=== PATIENT | male | born 1975 | race Caucasian/White ===

== ENCOUNTER 2017-08-21 09:34 | Emergency (ER) | payer BC, OTHER ==
[2017-08-21 09:59] VITALS: BP 112/76; PULSE 111; TEMP 98.9; BMI 33.9
[2017-08-21] MEDS ORDERED: KETOROLAC TROMETHAMINE 60 MG/2 ML VIAL IM ONE (11:35)
[2017-08-21] MEDS ORDERED: KETOROLAC TROMETHAMINE 60 MG/2 ML VIAL ONE (11:42)
--- NOTE | 2017-08-21 11:42 | PDOC ---
History of Present Illness - General Chief Complaint: Back Pain Stated Complaint: LOWER BACK PAIN Time Seen by Provider: 08/21/17 11:27 History Source: Patient Exam Limitations: No Limitations - History of Present Illness Initial Comments: 08/21/17 11:36 41 yr male with c/o low back pain radiates to left buttock causing foot numbness and tingling started 2 days ago after sleeping crooked. pt has history of laminectomy to l5 years ago has had on and off back pain since. Denies urine or bowel dysfunction. neg abd pain. 08/21/17 11:37 Occurred: reports: this afternoon Severity: reports: moderate Past History - Past Medical History Allergies/Adverse Reactions: Allergies Allergy/AdvReac Type Severity Reaction Status Date / Time No Known Allergies Allergy Verified 08/21/17 09:54 Home Medications: Ambulatory Orders Cyclobenzaprine HCl [Flexeril -] 10 mg PO TID PRN #21 tablet 08/21/17 Methylprednisolone [Medrol Dose Randy] 4 mg PO ASDIR #21 tablet 08/21/17 Oxycodone HCl/Acetaminophen [Percocet 5-325 mg Tablet] 1 tab PO Q6H PRN #10 tablet MDD 6 tabs 08/21/17 CVA: No COPD: No DVT: No HTN: Yes Psychiatric Problems: Yes (ANXIETY/INSOMNIA) - Immunization History Immunization Up to Date: Yes - Suicide/Smoking/Psychosocial Hx Smoking History: Current every day smoker Have you smoked in the past 12 months: No Number of Cigarettes Smoked Daily: 20 Information on smoking cessation initiated: No Hx Alcohol Use: No Drug/Substance Use Hx: No Substance Use Type: None Trauma Specific PMHX - Complaint Specific PMHX Arthritis: No Back Injury: Yes Neck Injury: No Hx Sacro Iliac Joint Dysfunction: No Review of Systems - Review of Systems Able to Perform ROS?: Yes Is the patient limited Bahraini proficient: No Constitutional: No: Symptoms Reported HEENTM: No: Symptoms Reported Cardiac (ROS): No: Symptoms Reported : No: Symptoms Reported Musculoskeletal: Yes: Symptoms Reported, Back Pain *Physical Exam - Vital Signs Last Vital Signs Temp Pulse Resp BP Pulse Ox 98.9 F 111 H 20 112/76 95 08/21/17 09:54 08/21/17 09:54 08/21/17 09:54 08/21/17 09:54 08/21/17 09:54 - Physical Exam General Appearance: Yes: Nourished, Appropriately Dressed, Mild Distress HEENT: positive: EOMI, SANJU Neck: positive: Supple. negative: Tender lateral, Tender midline Respiratory/Chest: positive: Lungs Clear, Normal Breath Sounds Cardiovascular: positive: Regular Rhythm, Regular Rate Musculoskeletal: positive: Normal Inspection, Other (paraspinal soft tissue lumbar pain to left buttock). negative: Vertebral Tenderness Extremity: positive: Normal Capillary Refill, Normal Inspection, Normal Range of Motion Integumentary: positive: Normal Color, Dry, Warm Neurologic: positive: Fully Oriented, Alert, Normal Mood/Affect, Normal Response , Motor Strength 5/5 Medical Decision Making - Medical Decision Making 08/21/17 11:39 cc: lower back pain radiates to the buttock and thigh no urine or bowel dysfunction will give toradol now ct lumbar spine 08/21/17 16:14 pt feels better after the toradol injection is able to ambulate more easily dc inst discussed all questions asked andanswered at discharge. *DC/Admit/Observation/Transfer Diagnosis at time of Disposition: Back pain at L4-L5 level - Discharge Dispostion Disposition: HOME Condition at time of disposition: Improved - Prescriptions Prescriptions: Cyclobenzaprine HCl [Flexeril -] 10 mg PO TID PRN #21 tablet PRN Reason: Muscle Spasms Methylprednisolone [Medrol Dose Randy] 4 mg PO ASDIR #21 tablet Oxycodone HCl/Acetaminophen [Percocet 5-325 mg Tablet] 1 tab PO Q6H PRN #10 tablet MDD 6 tabs PRN Reason: Severe Pain - Referrals Referrals: Alejandro Vizcarra MD, FAANS [Staff Physician] - - Patient Instructions Additional Instructions: follow with the neurosurgeon for follow up call today to make appointment for this week or next week take the flexeril for muscle spasm take decadron (steroid) as directed for back pain no heavy lifting or bending return to ER for any worsening symptoms - Post Discharge Activity Forms/Work/School Notes: Back to Work
== END 2017-08-21 14:11 | disposition home or self-care (01) ==
LOC: JERFT 09:34
PROC: 3E0233Z Introduction of Anti-inflammatory into Muscle, Percutaneous Approach (ICD-10-PCS; principal; 2017-08-21)
DX: M54.5 Low back pain (principal); I10 Essential (primary) hypertension; F41.8 Other specified anxiety disorders; G47.00 Insomnia, unspecified; F17.210 Nicotine dependence, cigarettes, uncomplicated
CPT/HCPCS: 72131-TC; 99281-25

== ENCOUNTER 2017-09-01 12:04 | Emergency (ER) | payer BC ==
[2017-09-01 12:17] VITALS: BMI 35.2
--- NOTE | 2017-09-01 12:41 | PDOC ---
History of Present Illness - General History Source: Patient Exam Limitations: No Limitations - History of Present Illness Initial Comments: 09/01/17 14:12 The patient is a 41 year old male, with a significant past medical history of hypertension and anxiety/depression(recently started on Trazadone 3 weeks ago), who presents to the emergency department complaining of intermittent chest pain for approximately 1 week. The patient reports his chest pain is typically localized at the right sternal border, however, occurs on his left side with deep inspiration. Patient reports he was having an argument with his when his symptoms started. He reports his symptoms are exacerbated with stress. Today , patient reports new onset of left arm weakness and associated left wrist pain which has resolved. He reports associated shortness of breath, but denies any associated diaphoresis, palpitations, or lower extremity edema. Patient endorses an intermittent cough, which he associates to his Flu and Strep throat diagnosis about 3 weeks ago. Patient denies any recent fever or chills. He denies any recent trauma, heavy lifting, long car/plane rides, sick contacts, or family history of blood clots, exogenous hormones. Patient endorses taking Percocet for his back pain, which was prescribed to him in the ED 2 weeks ago. Patient admits to using a "weed pen" 1 month ago, but denies any recent Cocaine or Ecstasy use. As per partner present at bedside, the patient has not been acting at baseline since starting Trazadone; she reports associated falls and confusion. Allergies: NKDA Past Surgical History: Lower back surgery Social History: Current everyday smoker. Recreational drug use. No ETOH use PCP: Dr. Vazquez <Jairon Cifuentes - Last Filed: 09/01/17 15:33> <Roxann Francois - Last Filed: 09/01/17 19:32> - General Chief Complaint: Respiratory Stated Complaint: CHEST PAIN Past History <Jairon Cifuentes - Last Filed: 09/01/17 15:33> - Past Medical History CVA: No COPD: No DVT: No HTN: Yes Psychiatric Problems: Yes (ANXIETY/INSOMNIA) - Immunization History Immunization Up to Date: Yes - Suicide/Smoking/Psychosocial Hx Smoking History: Current every day smoker Have you smoked in the past 12 months: No Number of Cigarettes Smoked Daily: 20 Information on smoking cessation initiated: No Hx Alcohol Use: No Drug/Substance Use Hx: No Substance Use Type: None <Roxann Francois - Last Filed: 09/01/17 19:32> - Past Medical History Allergies/Adverse Reactions: Allergies Allergy/AdvReac Type Severity Reaction Status Date / Time No Known Allergies Allergy Verified 09/01/17 12:17 Home Medications: Ambulatory Orders Amlodipine Bes/Olmesartan Med [Radha 5-20 mg Tablet] 1 each PO DAILY 09/01/17 Trazodone HCl [Desyrel -] 100 mg PO HS 09/01/17 Review of Systems - Review of Systems Able to Perform ROS?: Yes Comments:: 09/01/17 14:12 GENERAL/CONSTITUTIONAL: No fever or chills. No weakness. HEAD, EYES, EARS, NOSE AND THROAT: No change in vision. No ear pain or discharge. No sore throat. GASTROINTESTINAL: No nausea, vomiting, diarrhea or constipation. GENITOURINARY: No dysuria, frequency, or change in urination. CARDIOVASCULAR: Yes chest pain, shortness of breath. No diaphoresis, palpitations. RESPIRATORY: Yes cough. No wheezing, or hemoptysis. MUSCULOSKELETAL: Yes left arm weakness and left wrist pain. No joint or muscle swelling. No neck or back pain. SKIN: No rash NEUROLOGIC: No headache, vertigo, loss of consciousness, or change in strength/ sensation. ENDOCRINE: No increased thirst. No abnormal weight change. HEMATOLOGIC/LYMPHATIC: No anemia, easy bleeding, or history of blood clots. ALLERGIC/IMMUNOLOGIC: No hives or skin allergy. <Jairon Cifuentes - Last Filed: 09/01/17 15:33> *Physical Exam - Vital Signs Last Vital Signs Temp Pulse Resp BP Pulse Ox 98.7 F 106 H 20 130/91 99 09/01/17 12:15 09/01/17 12:15 09/01/17 12:15 09/01/17 12:15 09/01/17 12:15 - Physical Exam Comments: 09/01/17 14:12 GENERAL: Awake, alert, and fully oriented. Tearful on exam, reports a lot of stress. HEAD: No signs of trauma EYES: PERRLA, EOMI, sclera anicteric, conjunctiva clear ENT: Auricles normal inspection, hearing grossly normal, nares patent, oropharynx clear without exudates. Moist mucosa NECK: Normal ROM, supple, no lymphadenopathy, JVD, or masses LUNGS: Breath sounds equal, clear to auscultation bilaterally. No wheezes, and no crackles HEART: Regular rate and rhythm, normal S1 and S2, no murmurs, rubs or gallops ABDOMEN: Soft, nontender, normoactive bowel sounds. No guarding, no rebound. No masses EXTREMITIES: Normal range of motion, no edema. No clubbing or cyanosis. No cords, erythema, or tenderness BACK: No midline spinal tenderness in cervical/thoracic/lumbar region NEUROLOGICAL: Normal speech, cranial nerves intact, negative pronator drift, 5/ 5 strength in all 4 extremities, normal sensation to light touch in all 4 extremities, normal cerebellar exam, normal gait, normal reflexes and tone SKIN: Warm, Dry, normal turgor, no rashes or lesions noted. PSYCH: denies SI/HI/AH/VH <Jairon Cifuentes - Last Filed: 09/01/17 15:33> - Vital Signs Last Vital Signs Temp Pulse Resp BP Pulse Ox 98.7 F 106 H 20 130/91 99 09/01/17 12:15 09/01/17 12:15 09/01/17 12:15 09/01/17 12:15 09/01/17 12:15 <Roxann Francois - Last Filed: 09/01/17 19:32> Heart Score/ECG Review - History History: Slightly suspicious - Electrocardiogram EKG: Non specific repolarization disturbance - Age Age: </= 45 - Risk Factors Risk Factors Heart Score: Yes Hx Hypertension, Yes Smoking History, Yes Hx Obesity Based on the list above the patient has:: >/=3 risk factors or Hx atherosclerotic disease - Troponin Troponin: </= normal limit - Score Heart Score - Total: 3 #1 09/01/17 15:26 Twelve-lead EKG was performed and reviewed by me. Sinus tachycardia, rate 105. Left axis deviation. No ST elevations. Isolated T-wave inversion in lead 3. <Roxann Francois - Last Filed: 09/01/17 19:32> ED Treatment Course - LABORATORY CBC & Chemistry Diagram: 09/01/17 13:27 09/01/17 13:27 - ADDITIONAL ORDERS Additional order review: 09/01/17 13:27 RBC 5.35 MCV 91.5 MCHC 32.6 RDW 14.8 MPV 7.9 Neutrophils % 74.1 Lymphocytes % 15.2 Monocytes % 9.0 Eosinophils % 1.1 Basophils % 0.6 - RADIOLOGY Radiograph Interpretation: 09/01/17 14:13 EXAM: CXR INTERPRETED BY: Dr. Luke REVIEWED BY: Dr. Francois IMPRESSION: No acute pathology. <Jairon Cifuentes - Last Filed: 09/01/17 15:33> - LABORATORY CBC & Chemistry Diagram: 09/01/17 13:27 09/01/17 13:27 <Roxann Francois - Last Filed: 09/01/17 19:32> Medical Decision Making - Medical Decision Making 09/01/17 13:36 41-year-old male with a history of hypertension, depression, anxiety presents with 3 days of intermittent right-sided chest pain that at times radiates to the left chest. Prior to arrival to the emergency department patient also had left arm pain. Vitals remarkable for tachycardia to 106. Exam is unremarkable. Differential includes but is not limited to ACS although HS 3 versus PE versus musculoskeletal pain versus pneumonia versus GERD. Plan: -labs -cxr -dimer -utox -pt declines pain medication -reassess 09/01/17 15:27 Labs unremarkable including negative troponin and negative d-dimer. Chest x-ray is clear. Urinalysis is unremarkable. Urine toxicology positive for opiates, cocaine, and ecstasy. Patient reports he has been taking Percocet that was prescribed exam here in the emergency department 2 weeks ago, however he denies any cocaine or ecstasy use. He does admit to a using a "weed pen" 1 month ago. He reports that his chest pain has resolved for the time being. Given the low heart score of 3, will obtain a second troponin 4 hours after the first. Pain is possibly musculoskeletal versus GERD, however patient is currently asymptomatic. Will reassess. 09/01/17 19:25 Second troponin is negative. Patient with no chest pain in the emergency department. Vitals are unremarkable. He requests discharge home. I discussed the physical exam findings, ancillary test results and final diagnoses with the patient. I answered all of the patient's questions. The patient was satisfied with the care received and felt comfortable with the discharge plan and treatment plan. The patient will call their primary care physician within 24 hours to arrange follow-up and will return to the Emergency Department with any new, persistent or worsening symptoms. <Roxann Francois - Last Filed: 09/01/17 19:32> *DC/Admit/Observation/Transfer - Attestations Scribe Attestion: 09/01/17 14:12 Documentation prepared by Jairon Cifuentes, acting as senior medical writer for Roxann Francois MD. <Jairon Cifuentes - Last Filed: 09/01/17 15:33> - Discharge Dispostion Admit: No - Attestations Physician Attestion: 09/01/17 19:26 I, Dr. Roxann Francois MD, attest that this document has been prepared under my direction and personally reviewed by me in its entirety. I further attest, that it accurately reflects all work, treatment, procedures and medical decision -making performed by me. <Roxann Francois - Last Filed: 09/01/17 19:32> Diagnosis at time of Disposition: Chest pain - Discharge Dispostion Disposition: HOME Condition at time of disposition: Stable
[2017-09-01 14:05] LABS: BASO % 0.6 % (0-2.0); EOS % 1.1 % (0-4.5); LYMPH % 15.2 % (8-40); MCH 29.9 pg (25.7-33.7); MCHC 32.6 g/dl (32.0-35.9); MEAN CELL VOLUME 91.5 fl (80-96); MEAN PLT VOLUME 7.9 fl (7.5-11.1); NEUT % 74.1 % (42.8-82.8); PLATELET COUNT 227 K/MM3 (134-434); RBC 5.35 M/mm3 (4.00-5.60); RDW 14.8 % (11.9-15.9)
[2017-09-01 14:22] LABS: URINE APPEARANCE CLEAR; URINE BILIRUBIN NEGATIVE (NEGATIVE); URINE BLOOD 1+ (NEGATIVE); URINE COLOR YELLOW; URINE GLUCOSE (UA) NEGATIVE (NEGATIVE); URINE KETONE NEGATIVE (NEGATIVE); URINE LEUK ESTERASE TRACE (NEGATIVE); URINE NITRITE NEGATIVE (NEGATIVE); URINE PROTEIN NEGATIVE (NEGATIVE); URINE UROBILINOGEN NEGATIVE mg/dL (0.2-1.0)
[2017-09-01 14:27] LABS: LIPASE 123 U/L (73-393); MAGNESIUM 2.2 mg/dL (1.8-2.4)
[2017-09-01 14:33] LABS: EPI CELLS RARE /HPF (FEW); URINE BACTERIA RARE /hpf (NONE SEEN); URINE MUCUS RARE
[2017-09-01 14:33] LABS: ALBUMIN 3.8 g/dl (3.4-5.0); ALK PHOS 78 U/L (45-117); ANION GAP 5 (8-16); BILIRUBIN,TOTAL 0.4 mg/dL (0.2-1.0); BLOOD UREA NITROGEN 14 mg/dL (7-18); CALCIUM 8.6 mg/dL (8.5-10.1); CHLORIDE 102 mmol/L (98-107); CO2 30 mmol/L (21-32); CREATININE 0.9 mg/dL (0.7-1.3); GLUCOSE,RANDOM 106 mg/dL (74-106); SGPT/ALT 52 U/L (12-78); SODIUM 137 mmol/L (136-145)
[2017-09-01 15:03] LABS: POTASSIUM 4.2 mmol/L (3.5-5.1); SGOT/AST 24 U/L (15-37)
[2017-09-01 15:10] LABS: URINE AMPHETAMINES NEGATIVE ng/ml (CUTOFF=500); URINE BARBITURATES NEGATIVE ng/ml (CUTOFF=200); URINE BENZODIAZEPINES NEGATIVE ng/ml (CUTOFF=200)
[2017-09-01 15:11] LABS: COCAINE, UR POSITIVE ng/ml (CUTOFF=300); METHADONE, UR NEGATIVE ng/ml (CUTOFF=300); OPIATES, URI POSITIVE ng/ml (CUTOFF=300); PHENCYCLIDINE,URINE NEGATIVE ng/ml (CUTOFF=25)
[2017-09-01 20:04] VITALS: BP 168/67; PULSE 78; TEMP 98
--- NOTE | 2017-09-02 11:41 | EKG ---
Test Reason : Blood Pressure : / mmHG Vent. Rate : 105 BPM Atrial Rate : 105 BPM P-R Int : 126 ms QRS Dur : 090 ms QT Int : 340 ms P-R-T Axes : 041 -46 020 degrees QTc Int : 449 ms SINUS TACHYCARDIA LEFT AXIS DEVIATION PULMONARY DISEASE PATTERN ABNORMAL ECG Confirmed by MD LORNE, MILES ([id number]) on 09/02/2017 11:41:21 AM Referred By: Confirmed By:MILES PRADHAN MD
== END 2017-09-01 20:04 | disposition home or self-care (01) ==
LOC: JER 12:04 → UNDOADMOB 15:32 → JERBED 15:32 → JER 20:04
DX: R07.89 Other chest pain (principal); I10 Essential (primary) hypertension; F41.8 Other specified anxiety disorders
CPT/HCPCS: 36415; 71045-TC; 80053; 80307; 81003; 81015; 83690; 83735; 84443; 84484; 85025; 85379; 87086; 93005; 93010; 99283-25; G0480

== ENCOUNTER 2018-07-22 18:44 | Emergency (ER) | payer BC ==
[2018-07-22 18:55] VITALS: BP 150/100; PULSE 98; TEMP 100; BMI 38.0
--- NOTE | 2018-07-22 20:08 | PDOC ---
History of Present Illness <Yamini Santamaria - Last Filed: 07/23/18 00:41> - History of Present Illness Initial Comments: 07/22/18 21:49 This is a 42 year old male, with a significant past medical history of hypertension and anxiety/depression, who presents to the emergency department today complaining of a right pinky laceration that occurred 1 hour prior to arrival. Patient notes he sliced his finger on a mandolin earlier tonight while cooking dinner. Reports chunk of his finger fell off into mandolin completely. He denies paresthesia to the right pinky finger. Patient notes he is up to date on his Tetanus vaccination, last got earlier this year. The patient denies chest pain, shortness of breath, headache and dizziness. Denies fever, chills, nausea, and vomit. Allergies: NKA PCP: Dr. Vazquez. 07/23/18 06:07 <Roxann Francois - Last Filed: 07/23/18 06:10> - General Chief Complaint: Laceration Stated Complaint: RIGHT 5TH FINGER LACERATION Time Seen by Provider: 07/22/18 19:34 Past History <Yamini Santamaria - Last Filed: 07/23/18 00:41> - Past Medical History CVA: No COPD: No DVT: No HTN: Yes Kidney Stones: Yes Psychiatric Problems: Yes (ANXIETY/INSOMNIA) - Immunization History Immunization Up to Date: Yes - Suicide/Smoking/Psychosocial Hx Smoking History: Current every day smoker Have you smoked in the past 12 months: Yes Number of Cigarettes Smoked Daily: 20 Information on smoking cessation initiated: Yes Hx Alcohol Use: Yes (1-2 TIMES A WEEK) Drug/Substance Use Hx: No Substance Use Type: None <Roxann Francois - Last Filed: 07/23/18 06:10> - Past Medical History Allergies/Adverse Reactions: Allergies Allergy/AdvReac Type Severity Reaction Status Date / Time No Known Allergies Allergy Verified 07/22/18 19:31 Home Medications: Ambulatory Orders Amlodipine Bes/Olmesartan Med [Radha 5-20 mg Tablet] 1 each PO DAILY 09/01/17 Cephalexin [Keflex] 500 mg PO QID #28 capsule 07/22/18 Naproxen 500 mg PO BID PRN #14 tablet 07/22/18 Oxycodone HCl/Acetaminophen [Percocet 5-325 mg Tablet] 1 tab PO Q12H PRN #5 tablet MDD 2 tabs 07/22/18 Review of Systems - Review of Systems Comments:: 07/22/18 21:51 GENERAL/CONSTITUTIONAL: No fever or chills. No weakness. HEAD, EYES, EARS, NOSE AND THROAT: No change in vision. No ear pain or discharge. No sore throat. GASTROINTESTINAL: No nausea, vomiting, diarrhea or constipation. GENITOURINARY: No dysuria, frequency, or change in urination. CARDIOVASCULAR: No chest pain or shortness of breath. RESPIRATORY: No cough, wheezing, or hemoptysis. MUSCULOSKELETAL: +Right pinky laceration. +Right pinky pain. No neck or back pain. SKIN: No rash NEUROLOGIC: No headache, vertigo, loss of consciousness, or change in strength/ sensation. ENDOCRINE: No increased thirst. No abnormal weight change. HEMATOLOGIC/LYMPHATIC: No anemia, easy bleeding, or history of blood clots. ALLERGIC/IMMUNOLOGIC: No hives or skin allergy. <Roxann Francois - Last Filed: 07/23/18 06:10> *Physical Exam - Vital Signs Last Vital Signs Temp Pulse Resp BP Pulse Ox 100.0 F H 98 H 18 150/100 96 07/22/18 18:46 07/22/18 18:46 07/22/18 18:46 07/22/18 18:46 07/22/18 18:46 <Yamini Santamaria - Last Filed: 07/23/18 00:41> - Vital Signs Last Vital Signs Temp Pulse Resp BP Pulse Ox 100.0 F H 98 H 18 150/100 96 07/22/18 18:46 07/22/18 18:46 07/22/18 18:46 07/22/18 18:46 07/22/18 18:46 - Physical Exam Comments: 07/22/18 21:52 GENERAL: Awake, alert, and fully oriented, in no acute distress EYES: Sclera anicteric, conjunctiva clear LUNGS: Breath sounds equal, clear to auscultation bilaterally. No wheezes, and no crackles HEART: Regular rate and rhythm, normal S1 and S2, no murmurs, rubs or gallops ABDOMEN: Soft, nontender, normoactive bowel sounds. No guarding, no rebound. No masses EXTREMITIES: R 5th finger with 1 cm dermal avulsion over dorsal DIP joint, with mild oozing in multiple areas. Able to fully flex and extend against resistance in DIP and PIP. Normal sensation. No exposed tendons. NEUROLOGICAL: Normal speech, cranial nerves intact, equal strength and sensation b/l SKIN: As noted above, otherwise warm, dry, normal turgor, no rashes or lesions noted. <Roxann Francois - Last Filed: 07/23/18 06:10> Moderate Sedation - Procedure Monitoring Vital Signs: Procedure Monitoring Vital Signs Temperature 100.0 F H 07/22/18 18:46 Pulse Rate 98 H 07/22/18 18:46 Respiratory Rate 18 07/22/18 18:46 Blood Pressure 150/100 07/22/18 18:46 O2 Sat by Pulse Oximetry (%) 96 07/22/18 18:46 <Yamini Santamaria - Last Filed: 07/23/18 00:41> - Procedure Monitoring Vital Signs: Procedure Monitoring Vital Signs Temperature 100.0 F H 07/22/18 18:46 Pulse Rate 98 H 07/22/18 18:46 Respiratory Rate 18 07/22/18 18:46 Blood Pressure 150/100 07/22/18 18:46 O2 Sat by Pulse Oximetry (%) 96 07/22/18 18:46 <Roxann Francois - Last Filed: 07/23/18 06:10> ED Treatment Course - RADIOLOGY Radiograph Interpretation: RAD/FINGER(S) RIGHT Impression: Soft tissue swelling, distally. Reported By: Cleveland Riggins MD 07/23/18 00:00. 07/23/18 00:35 - Consult/PCP Time Called: 19:35 (Spoke with Dr. Guo concerning patient's laceration, he recommended wound dressing and a follow up with his office on Sunday) Case discussed with personal care physician: Devan Guo <Yamini Santamaria - Last Filed: 07/23/18 00:41> - RADIOLOGY Radiology Studies Ordered: Category Date Time Status FINGER(S) RIGHT [RAD] Stat Radiology 07/22/18 20:05 Ordered <Roxann Francois - Last Filed: 07/23/18 06:10> Medical Decision Making - Medical Decision Making 07/22/18 22:01 42yo M presents to the ED with R 5th finger DIP dermal avulsion injury, flap removed with mandolin entirely. XR negative for FB on my read. Despite pressure dressing, wound continued to ooze. At this point tourniquet placed on proximal finger, secured with clamp and finger dressed with gauze soaked with 2% lidocaine with epi. Good hemostasis achieved. Using nasal cannula, wound was dried and multiple layers of skin adhesive applied to wound. Xeroform dressing placed with dry dressing over it. Splint placed on finger to minimize ROM. Case discussed with Dr. Guo, recommends keflex and f/u with him in 2 days. Plan discussed with pt. Given percocet for pain control. Requests DC home I discussed the physical exam findings, ancillary test results and final diagnoses with the patient. I answered all of the patient's questions. The patient was satisfied with the care received and felt comfortable with the discharge plan and treatment plan. The patient will call their primary care physician within 24 hours to arrange follow-up and will return to the Emergency Department with any new, persistent or worsening symptoms. <Roxann Francois - Last Filed: 07/23/18 06:10> *DC/Admit/Observation/Transfer - Attestations Scribe Attestion: 07/22/18 20:29 Documentation prepared by ZULEMA Herrmann, acting as medical and scientific illustrator for Roxann Francois MD. <Yamini Santamaria - Last Filed: 07/23/18 00:41> - Discharge Dispostion Decision to Admit order: No - Attestations Physician Attestion: 07/22/18 21:27 I, Dr. Roxann Francois MD, attest that this document has been prepared under my direction and personally reviewed by me in its entirety. I further attest, that it accurately reflects all work, treatment, procedures and medical decision -making performed by me. <Roxann Francois - Last Filed: 07/23/18 06:10> Diagnosis at time of Disposition: Laceration - Discharge Dispostion Disposition: HOME Condition at time of disposition: Good - Prescriptions Prescriptions: Cephalexin [Keflex] 500 mg PO QID #28 capsule Naproxen 500 mg PO BID PRN #14 tablet PRN Reason: Pain Oxycodone HCl/Acetaminophen [Percocet 5-325 mg Tablet] 1 tab PO Q12H PRN #5 tablet MDD 2 tabs PRN Reason: Pain - Referrals Referrals: Toro Vazquez [Primary Care Provider] - Devan Guo MD [Staff Physician] - - Patient Instructions Printed Discharge Instructions: How to Care for a Surgical Wound-Skin Adhesive Additional Instructions: Keep the incision clean and dry until you see Dr. Guo on Tuesday 07/24. He is the hand surgeon. His phone number is [phone]. Please call his office tomorrow in the morning to arrange a time to see him on Sunday. After 24 hours, you may allow the soap and water to rinse off your incision. Take naproxen as needed for pain twice a day. If naproxen is not controlling your pain, take percocet as needed. Return to the ER if you notice red streaks, increase redness/swelling/severe pain to the incision. - Post Discharge Activity
[2018-07-22] MEDS ORDERED: LIDO 2%/EPI 1:200000 PRESRVFRE (20 ML SDVIAL) ONE (20:42)
== END 2018-07-22 21:26 | disposition home or self-care (01) ==
LOC: FER 18:44
DX: S61.216A Laceration without foreign body of right little finger without damage to nail, initial encounter (principal); W27.8XXA Contact with other nonpowered hand tool, initial encounter; Y93.G3 Activity, cooking and baking; Y92.000 Kitchen of unspecified non-institutional (private) residence as the place of occurrence of the external cause; F17.210 Nicotine dependence, cigarettes, uncomplicated; F41.9 Anxiety disorder, unspecified; I10 Essential (primary) hypertension; N20.0 Calculus of kidney
CPT/HCPCS: 73140-TC-RT-FY; 99282-25

== ENCOUNTER 2020-07-03 19:11 | Emergency (ER) | payer OTHER | END 2020-07-03 19:45 | disposition home or self-care (01) | LOC: JVIRT 19:11 | DX: Z03.818 Encounter for observation for suspected exposure to other biological agents ruled out (principal) | CPT/HCPCS: 87804; C9803; G2012-GT; Q3014-GT; U0003 ==

== ENCOUNTER 2020-07-13 10:51 | Emergency (ER) | payer OTHER | END 2020-07-13 11:33 | disposition home or self-care (01) | LOC: JVIRT 10:51 | DX: Z03.818 Encounter for observation for suspected exposure to other biological agents ruled out (principal) | CPT/HCPCS: C9803; G2012-GT; U0003 ==

== ENCOUNTER 2020-09-10 12:58 | Emergency (ER) | payer OTHER | END 2020-09-10 13:23 | disposition home or self-care (01) | LOC: JVIRT 12:58 | DX: Z11.52 Encounter for screening for COVID-19 (principal) | CPT/HCPCS: C9803; G2012-GT; U0003 ==

== ENCOUNTER 2021-07-02 14:37 | Emergency (ER) | payer OTHER ==
[2021-07-02 15:50] VITALS: BMI 35.9
[2021-07-02] MEDS ORDERED: ACETAMINOPHEN 1000 MG/100 ML VIAL IVPB ONE (16:01)
[2021-07-02] MEDS ORDERED: SODIUM CHLORIDE 0.9% 500 ML INFUS.BAG IV ONE (16:01)
[2021-07-02] MEDS ORDERED: ACETAMINOPHEN INJECTION 100 ML IVPB ONE (16:04)
[2021-07-02 16:46] LABS: BASO % 4.8 % (0-2.0); EOS % 1.2 % (0-4.5); HEMATOCRIT 51.8 % (35.4-49); HEMOGLOBIN 17.4 GM/dl (11.7-16.9); LYMPH % 11.8 % (8-40); MCH 31.3 pg (25.7-33.7); MCHC 33.7 g/dl (32.0-35.9); MONO % 12.1 % (3.8-10.2); NEUT % 70.1 % (42.8-82.8); PLATELET COUNT 187 10^3/uL (134-434); RBC 5.57 M/mm3 (4.00-5.60); RDW 13.3 % (11.9-15.9); WHITE BLOOD COUNT 9.4 K/mm3 (4.0-10.8)
[2021-07-02 16:52] LABS: BILIRUBIN,TOTAL 0.6 mg/dl (0.2-1); CALCIUM 9.2 mg/dl (8.5-10); CREATININE 0.8 mg/dl (0.55-1.3); TOT PROT 6.8 g/dl (6.4-8.2)
[2021-07-02 17:48] VITALS: BP 152/106; PULSE 98; TEMP 98.8
== END 2021-07-02 18:22 | disposition home or self-care (01) ==
LOC: FER 14:37
PROC: 3E033NZ Introduction of Analgesics, Hypnotics, Sedatives into Peripheral Vein, Percutaneous Approach (ICD-10-PCS; principal; 2021-07-02)
DX: J02.9 Acute pharyngitis, unspecified (principal); R03.0 Elevated blood-pressure reading, without diagnosis of hypertension; R07.9 Chest pain, unspecified; J06.9 Acute upper respiratory infection, unspecified
CPT/HCPCS: 36415; 71046-TC-FY; 80053; 82550; 82553; 84484; 85025; 87651; 87804; 93005; 99284-25; C9803; J0131; U0003; U0005

== ENCOUNTER 2023-11-19 00:26 | Emergency (ER) | payer OTHER ==
[2023-11-19] MEDS ORDERED: diphenhydrAMINE HCL 25 MG CAPSULE (FP) PO ONE (00:31)
[2023-11-19] MEDS ORDERED: predniSONE 20 MG TABLET (UD) ONE (00:31)
[2023-11-19] MEDS: diphenhydrAMINE HCL 50 MG CAPSULE PO ONE (00:35)
[2023-11-19] MEDS: predniSONE 20 MG TABLET (UD) PO ONE (00:35)
[2023-11-19 00:38] VITALS: BP 142/97; TEMP 97.7; BMI 36.6
[2023-11-19 01:39] VITALS: PULSE 80; RESP 16
== END 2023-11-19 01:48 | disposition home or self-care (01) ==
LOC: FER 00:26
DX: T78.40XA Allergy, unspecified, initial encounter (principal); H04.203 Unspecified epiphora, bilateral; R09.89 Other specified symptoms and signs involving the circulatory and respiratory systems
CPT/HCPCS: 99283-25

== ENCOUNTER 2024-04-05 12:29 | Emergency (ER) | payer OTHER ==
[2024-04-05 12:47] VITALS: BP 140/87; PULSE 102; RESP 16; TEMP 99.7; BMI 36.6
[2024-04-05] MEDS ORDERED: ACETAMINOPHEN 325 MG TABLET (FP) ONE (13:32)
[2024-04-05] MEDS: ACETAMINOPHEN 325 MG TABLET (FP) PO ONE (13:33)
== END 2024-04-05 17:35 | disposition home or self-care (01) ==
LOC: FER 12:29
DX: S92.254A Nondisplaced fracture of navicular [scaphoid] of right foot, initial encounter for closed fracture (principal); X50.1XXA Overexertion from prolonged static or awkward postures, initial encounter
CPT/HCPCS: 73610-TC-RT-FY; 73630-TC-RT-FY; 73700-TC-RT; 99284-25